=== PATIENT | male | born 1965 | race Caucasian/White ===

== ENCOUNTER 2020-06-28 15:34 | Inpatient (IN) | payer OTHER ==
[~2020-06-28] VITALS: Ht 172.7 cm; Wt 91.0 kg
[2020-06-28] MEDS ORDERED: MORPHINE SULFATE 4 MG/ML SYR/VIAL IV ONE (16:00)
[2020-06-28] MEDS ORDERED: ONDANSETRON HCL 4 MG/2 ML VIAL IV ONE (16:00)
[2020-06-28] MEDS ORDERED: FAMOTIDINE (10MG/ML) 2ML VL IV ONE (16:30)
[2020-06-28 16:48] LABS: Basophils # (auto) 0 10 ^3/uL (0-0.2); Eosinophils # (auto) 0.3 10 ^3/uL (0-0.8); Eosinophils % (auto) 3.1 % (0.0-7.0)
[2020-06-28 16:49] LABS: Basophils % (auto) 0.3 % (0.0-2.0); Hematocrit 45.5 % (41.0-53.0); Hemoglobin 16.3 g/dL (13.5-17.5); Mean Corpuscular Hemoglobin 31.9 pg (28.0-32.0); Mean Corpuscular Hgb Conc. 35.9 g/dL (32.0-36.0); Mean Corpuscular Volume 88.9 fL (80.0-100.0); Monocytes # (auto) 1.2 10 ^3/uL (0-1.3); Monocytes % (auto) 11.5 % (0.0-12.0); Neutrophils # (auto) 4.5 10 ^3/uL (1.6-8.6); Neutrophils % (auto) 45.1 % (37.0-80.0); Nucleated Red Blood Cells % 0.1 %; Platelet Count (auto) 506 10^3/uL (140-450); Red Blood Cells 5.11 10^6/uL (4.5-5.90); Red Cell Distribution Width 13.3 % (11.8-14.3); White Blood Cell 10.1 10^3/uL (4.4-10.8)
[2020-06-28 17:02] LABS: INR 1.01 (0.9-1.15); Partial Thromboplastin Time 26.7 sec (23.0-31.2)
[2020-06-28 17:19] LABS: Albumin 3.3 g/dL (3.4-5.0); Calcium 9.9 mg/dL (8.5-10.1); Magnesium 2.2 mg/dL (1.6-2.6); Potassium 3.4 mmol/L (3.5-5.1)
[2020-06-28 17:27] LABS: Bilirubin, Total 0.9 mg/dL (0.2-1.0); Total Protein 7.6 g/dL (6.4-8.2)
[2020-06-28] MEDS ORDERED: IOHEXOL 350 MG/ML 100ML IJ ONE (17:43)
[2020-06-28] MEDS ORDERED: POTASSIUM CHL 20 Meq TABLET PO ONE (18:00)
[2020-06-28] MEDS ORDERED: SODIUM CHLORIDE 0.9% 1,000 ML IV ONE (19:00)
[2020-06-28 19:38] LABS: Urine Bacteria NONE SEEN /hpf (None Seen); Urine Blood Negative /uL (Negative); Urine Specific Gravity 1.022 (1.001-1.035); Urine WBC 12 /hpf (0 - 3)
[2020-06-28] MEDS ORDERED: CLOPIDOGREL 300 MG TAB PO ONE (19:45)
[2020-06-28 19:48] LABS: Amphetamine Screen, Urine NEGATIVE (NEGATIVE); Barbiturate Scree,Urine NEGATIVE (NEGATIVE); Benzodiazephine Screen, Urine NEGATIVE (NEGATIVE); Cannabinoid Screen, Urine NEGATIVE (NEGATIVE); Cocaine Screen, Urine NEGATIVE (NEGATIVE); Phencyclidine Screen, Urine NEGATIVE (NEGATIVE)
[2020-06-28 19:56] LABS: Opiate Scree,Urine POSITIVE (NEGATIVE)
[2020-06-28] MEDS ORDERED: ENOXAPARIN SOD 100 MG/1 ML SYRINGE SC ONE (21:00)
[2020-06-29] MEDS ORDERED: NITROGLYCERIN 0.4 MG SL TAB SL PRN (01:00)
[2020-06-29] MEDS ORDERED: DOCUSATE SOD 100 MG CAP PO PRN (01:00)
[2020-06-29] MEDS: SODIUM CHLORIDE 0.9% 1,000 ML IV SCH ×2 (01:00→08:27)
[2020-06-29] MEDS ORDERED: DEXTROSE (50%) 50ML SYRG IV PRN (01:00)
[2020-06-29] MEDS ORDERED: MORPHINE SULFATE 4 MG/ML SYR/VIAL IV PRN (01:00)
[2020-06-29] MEDS ORDERED: MORPHINE SULF INJ 2 MG/ML SYRINGE 1ML IV ONE (01:15)
[2020-06-29] MEDS ORDERED: ONDANSETRON HCL 4 MG/2 ML VIAL IV ONE (01:15)
[2020-06-29] MEDS: ACETAMINOPHEN 325 MG TAB PO PRN ×2 (05:03→10:00)
[2020-06-29] MEDS: hydrALAZINE HCL 20 MG/ML VL IV SCH ×3 (06:00→18:00)
[2020-06-29] MEDS: ACCU-CHEK COMFORT CURVE STRIP VI SCH ×4 (07:00→22:00)
[2020-06-29] MEDS: InsuLIN REG 1unit/0.01ml Soln (100units/ml) SC SCH ×4 (07:56→21:55)
[2020-06-29] MEDS: MORPHINE SULF INJ 2 MG/ML SYRINGE 1ML IV PRN (07:57)
[2020-06-29] MEDS: ONDANSETRON HCL 4 MG/2 ML VIAL IV PRN (07:57)
[2020-06-29] MEDS: HYDROcodone-ACET 5/325MG TAB PO PRN (07:59)
[2020-06-29 08:25] LABS: Basophils # (auto) 0.1 10 ^3/uL (0-0.2); Eosinophils # (auto) 0.4 10 ^3/uL (0-0.8); Monocytes # (auto) 0.9 10 ^3/uL (0-1.3); Neutrophils # (auto) 4.4 10 ^3/uL (1.6-8.6); White Blood Cell 8.2 10^3/uL (4.4-10.8)
[2020-06-29 08:27] LABS: Basophils % (auto) 0.6 % (0.0-2.0); Eosinophils % (auto) 5.2 % (0.0-7.0); Hematocrit 45.3 % (41.0-53.0); Hemoglobin 15.8 g/dL (13.5-17.5); Lymphocytes # (auto) 2.3 10 ^3/uL (0.4-5.4); Lymphocytes % (auto) 28.8 % (10.0-50.0); Mean Corpuscular Hgb Conc. 34.8 g/dL (32.0-36.0); Mean Corpuscular Volume 89.3 fL (80.0-100.0); Monocytes % (auto) 10.9 % (0.0-12.0); Neutrophils % (auto) 54.5 % (37.0-80.0); Nucleated Red Blood Cells % 0.4 %; Platelet Count (auto) 440 10^3/uL (140-450); Red Blood Cells 5.07 10^6/uL (4.5-5.90); Red Cell Distribution Width 13.3 % (11.8-14.3)
[2020-06-29 09:00] LABS: Alanine Aminotransferase 79 U/L (16-61); Anion Gap 5 (5-15); Blood Urea Nitrogen 11 mg/dL (7-18); Calcium 9.1 mg/dL (8.5-10.1); Carbon Dioxide 27 mmol/L (21-32); Chloride 103 mmol/L (98-107); Glucose 198 mg/dL (74-106); Sodium 135 mmol/L (136-145)
[2020-06-29 09:04] LABS: Alkaline Phosphatase 104 U/L (45-117); Aspartate Aminotransferase 57 U/L (15-37); BUN/Creatinine Ratio 14.1; Bilirubin, Total 0.9 mg/dL (0.2-1.0); Cholesterol 218 mg/dL (< 200); GFR African American 132 mL/min; GFR Non-African American 109 mL/min; HDL Cholesterol 32 mg/dL (40-59); Total Protein 7.5 g/dL (6.4-8.2); Triglycerides 428 mg/dL (< 150)
[2020-06-29] MEDS ORDERED: ENOXAPARIN SOD 40 MG/0.4 ML SYRINGE SC SCH (10:00)
[2020-06-29] MEDS ORDERED: NITROGLYCERIN 0.4 MG SL TAB SL ONE (10:00)
[2020-06-29] MEDS ORDERED: CLOPIDOGREL BISULFATE 75 MG TAB PO SCH (10:00)
[2020-06-29] MEDS: MULTIPLE VITAMIN TAB PO SCH (10:07)
[2020-06-29] MEDS: PANTOPRAZOLE 40 MG/10 ML VIAL INJ IV SCH (10:07)
[2020-06-29] MEDS: ASCORBIC ACID 500 MG TAB PO SCH ×2 (10:07→22:00)
[2020-06-29] MEDS: ASPirin 81 mg TAB PO SCH (10:07)
[2020-06-29 14:21] VITALS: BP 130/77
[2020-06-29] MEDS ORDERED: MORPHINE SULF INJ 2 MG/ML SYRINGE 1ML IV PRN (15:15)
[2020-06-29] MEDS ORDERED: ENOXAPARIN SOD 100 MG/1 ML SYRINGE SC ONE (16:30)
[2020-06-29] MEDS ORDERED: ACETAMINOPHEN 500 MG TAB PO PRN (16:30)
[2020-06-29] MEDS ORDERED: REMDESIVIR PER PHARMACY 0 ML IV SCH (16:30)
[2020-06-29] MEDS ORDERED: METOPROLOL SUCCINATE XL 50 MG TAB PO ONE (17:00)
[2020-06-29 17:41] LABS: Eosinophils # (auto) 0.4 10 ^3/uL (0-0.8); Lymphocytes # (auto) 2.6 10 ^3/uL (0.4-5.4); Monocytes # (auto) 0.9 10 ^3/uL (0-1.3)
[2020-06-29 17:43] LABS: Basophils # (auto) 0.1 10 ^3/uL (0-0.2); Basophils % (auto) 1.2 % (0.0-2.0); Hematocrit 44.2 % (41.0-53.0); Hemoglobin 15.6 g/dL (13.5-17.5); Lymphocytes % (auto) 33.2 % (10.0-50.0); Mean Corpuscular Hemoglobin 31.9 pg (28.0-32.0); Mean Corpuscular Hgb Conc. 35.4 g/dL (32.0-36.0); Mean Corpuscular Volume 90.1 fL (80.0-100.0); Monocytes % (auto) 11.3 % (0.0-12.0); Neutrophils # (auto) 3.9 10 ^3/uL (1.6-8.6); Neutrophils % (auto) 49.3 % (37.0-80.0); Platelet Count (auto) 466 10^3/uL (140-450); Red Cell Distribution Width 13.1 % (11.8-14.3); White Blood Cell 7.9 10^3/uL (4.4-10.8)
[2020-06-29 18:06] LABS: BUN/Creatinine Ratio 13.8; Calcium 8.8 mg/dL (8.5-10.1); Magnesium 2.3 mg/dL (1.6-2.6)
[2020-06-29 18:10] LABS: Bilirubin, Total 0.8 mg/dL (0.2-1.0); CRP High Sensitivity 0.69 mg/dL (< 0.3); Total Protein 7.3 g/dL (6.4-8.2)
[2020-06-29] MEDS: ALBUTEROL SULF HFA 90MCG INH 200DOSE IN PRN (19:15)
[2020-06-29] MEDS ORDERED: ENOXAPARIN SOD 100 MG/1 ML SYRINGE SC SCH (22:00)
[2020-06-29] MEDS: ENOXAPARIN SOD 80 MG/0.8ML SYRINGE SC SCH (22:00)
[2020-06-29] MEDS ORDERED: BUDESONIDE (INHALATION) 180 MCG IH IN SCH (22:00)
[2020-06-29] MEDS: ATORVASTATIN 20 MG TAB PO SCH (22:00)
[2020-06-29] MEDS ORDERED: DOXYCYCLINE 100MG/250ML 250 ML IV SCH (22:00)
[2020-06-30] VITALS: BP 106/61
[2020-06-30] MEDS: hydrALAZINE HCL 20 MG/ML VL IV SCH ×5 (00:08→23:44)
[2020-06-30 06:04] LABS: Basophils # (auto) 0 10 ^3/uL (0-0.2); Basophils % (auto) 0.5 % (0.0-2.0); Eosinophils # (auto) 0.4 10 ^3/uL (0-0.8); Eosinophils % (auto) 5.2 % (0.0-7.0); Hematocrit 41.5 % (41.0-53.0); Hemoglobin 15.1 g/dL (13.5-17.5); Lymphocytes # (auto) 2.2 10 ^3/uL (0.4-5.4); Lymphocytes % (auto) 25.6 % (10.0-50.0); Mean Corpuscular Hemoglobin 32.4 pg (28.0-32.0); Mean Corpuscular Hgb Conc. 36.4 g/dL (32.0-36.0); Mean Corpuscular Volume 88.9 fL (80.0-100.0); Monocytes # (auto) 0.9 10 ^3/uL (0-1.3); Monocytes % (auto) 10.4 % (0.0-12.0); Neutrophils # (auto) 4.9 10 ^3/uL (1.6-8.6); Neutrophils % (auto) 58.3 % (37.0-80.0); Platelet Count (auto) 433 10^3/uL (140-450); Red Blood Cells 4.67 10^6/uL (4.5-5.90); Red Cell Distribution Width 13.3 % (11.8-14.3); White Blood Cell 8.5 10^3/uL (4.4-10.8)
[2020-06-30 06:25] LABS: Potassium 3.6 mmol/L (3.5-5.1)
[2020-06-30] MEDS: InsuLIN REG 1unit/0.01ml Soln (100units/ml) SC SCH ×4 (06:25→21:42)
[2020-06-30] MEDS: ACCU-CHEK COMFORT CURVE STRIP VI SCH ×4 (06:25→21:39)
[2020-06-30] MEDS: LEVOTHYROXINE SODIUM 50 MCG TAB PO SCH (06:26)
[2020-06-30 06:32] LABS: BUN/Creatinine Ratio 16.5; Calcium 8.8 mg/dL (8.5-10.1); Magnesium 2.1 mg/dL (1.6-2.6)
[2020-06-30 06:36] LABS: INR 1.06 (0.9-1.15); Partial Thromboplastin Time 34.7 sec (23.0-31.2)
[2020-06-30 06:55] LABS: Bilirubin, Total 0.8 mg/dL (0.2-1.0); Phosphorus 2.5 mg/dL (2.5-4.90); Total Protein 6.9 g/dL (6.4-8.2)
[2020-06-30] MEDS: HYDROcodone-ACET 5/325MG TAB PO PRN (07:12)
[2020-06-30 07:49] VITALS: BP 119/74
[2020-06-30] MEDS: MULTIPLE VITAMIN TAB PO SCH (09:35)
[2020-06-30] MEDS: PANTOPRAZOLE 40 MG/10 ML VIAL INJ IV SCH (09:35)
[2020-06-30] MEDS: ASPirin 81 mg TAB PO SCH (09:35)
[2020-06-30] MEDS: ZINC SULFATE 220mg CAP or TAB PO SCH (09:35)
[2020-06-30] MEDS: CHOLECALCIFEROL (VITD3) 2,000 UNIT CAP/TAB PO SCH (09:36)
[2020-06-30] MEDS: SODIUM CHLORIDE 0.9% 1,000 ML IV SCH (09:36)
[2020-06-30] MEDS: ENOXAPARIN SOD 80 MG/0.8ML SYRINGE SC SCH ×2 (09:36→21:39)
[2020-06-30] MEDS: ASCORBIC ACID 1,000 MG TAB PO SCH (09:36)
[2020-06-30] MEDS: METOPROLOL SUCCINATE XL 50 MG TAB PO SCH (09:36)
[2020-06-30] MEDS: ASCORBIC ACID 500 MG TAB PO SCH (09:54)
[2020-06-30] MEDS ORDERED: DexAMETHasone SOD PHOS 10MG/1ML VIAL INJ IV SCH (10:00)
[2020-06-30] MEDS: MORPHINE SULF INJ 2 MG/ML SYRINGE 1ML IV PRN (11:24)
[2020-06-30 16:06] VITALS: BP 116/68
[2020-06-30] MEDS: ATORVASTATIN 20 MG TAB PO SCH (21:38)
[2020-07-01] VITALS: BP 107/48
[2020-07-01] MEDS: SODIUM CHLORIDE 0.9% 1,000 ML IV SCH ×2 (03:13→19:40)
[2020-07-01] MEDS: hydrALAZINE HCL 20 MG/ML VL IV SCH ×3 (06:00→18:27)
[2020-07-01] MEDS: LEVOTHYROXINE SODIUM 50 MCG TAB PO SCH (06:55)
[2020-07-01] MEDS: InsuLIN REG 1unit/0.01ml Soln (100units/ml) SC SCH ×4 (06:55→21:36)
[2020-07-01] MEDS: ACCU-CHEK COMFORT CURVE STRIP VI SCH ×4 (06:56→21:37)
[2020-07-01 08:00] VITALS: BP 123/79
[2020-07-01] MEDS: PANTOPRAZOLE 40 MG/10 ML VIAL INJ IV SCH (09:25)
[2020-07-01] MEDS: ZINC SULFATE 220mg CAP or TAB PO SCH (09:26)
[2020-07-01] MEDS: METOPROLOL SUCCINATE XL 50 MG TAB PO SCH (09:26)
[2020-07-01] MEDS: MULTIPLE VITAMIN TAB PO SCH (09:26)
[2020-07-01] MEDS: ASPirin 81 mg TAB PO SCH (09:26)
[2020-07-01] MEDS: CHOLECALCIFEROL (VITD3) 2,000 UNIT CAP/TAB PO SCH (09:27)
[2020-07-01] MEDS: ENOXAPARIN SOD 80 MG/0.8ML SYRINGE SC SCH ×2 (09:27→21:42)
[2020-07-01] MEDS: ASCORBIC ACID 1,000 MG TAB PO SCH (09:27)
[2020-07-01] MEDS ORDERED: ANGIOMAX 250 MG VIAL IV ONE (14:32)
[2020-07-01] MEDS ORDERED: SODIUM CHL 0.9% 50 ML ONE (14:32)
[2020-07-01] MEDS ORDERED: fentaNYL CITRATE 100 MCG/2 ML VL ONE (14:32)
[2020-07-01] MEDS ORDERED: IOHEXOL 350 MG/ML 100ML IJ ONE ×2 (14:32→15:14)
[2020-07-01] MEDS ORDERED: MIDAZOLAM HCL 1MG/1ML-2 ML VIAL ONE (14:32)
[2020-07-01] MEDS ORDERED: LIDOCAINE 2%HCL (LOCAL ANESTH.) INJ 20ML MDV ONE (14:33)
[2020-07-01] MEDS ORDERED: TICAGRELOR 90 MG TAB ONE (15:53)
[2020-07-01] MEDS ORDERED: NITROGLYCERIN 0.4MG/DOSE SPRAY 4.9GM ONE (15:59)
[2020-07-01 16:00] VITALS: BP 136/69
[2020-07-01] MEDS: ONDANSETRON HCL 4 MG/2 ML VIAL IV PRN (19:56)
[2020-07-01] MEDS: HYDROcodone-ACET 5/325MG TAB PO PRN (20:19)
[2020-07-01] MEDS: ATORVASTATIN 20 MG TAB PO SCH (21:36)
[2020-07-02] VITALS: BP 117/73
[2020-07-02] MEDS ORDERED: PSEUDOEPHEDRINE HCL 30 MG TAB PO ONE (05:45)
[2020-07-02] MEDS: hydrALAZINE HCL 20 MG/ML VL IV SCH ×2 (06:00)
[2020-07-02] MEDS: LEVOTHYROXINE SODIUM 50 MCG TAB PO SCH (06:02)
[2020-07-02] MEDS: ACCU-CHEK COMFORT CURVE STRIP VI SCH (06:02)
[2020-07-02] MEDS: InsuLIN REG 1unit/0.01ml Soln (100units/ml) SC SCH (06:21)
[2020-07-02] MEDS: ALBUTEROL SULF HFA 90MCG INH 200DOSE IN PRN (06:34)
[2020-07-02 08:00] VITALS: BP 136/69
[2020-07-02] MEDS: ZINC SULFATE 220mg CAP or TAB PO SCH (09:54)
[2020-07-02] MEDS: ASPirin 81 mg TAB PO SCH (09:54)
[2020-07-02] MEDS: ASCORBIC ACID 1,000 MG TAB PO SCH (09:54)
[2020-07-02] MEDS: METOPROLOL SUCCINATE XL 50 MG TAB PO SCH (09:56)
[2020-07-02] MEDS: CHOLECALCIFEROL (VITD3) 2,000 UNIT CAP/TAB PO SCH (09:57)
[2020-07-02] MEDS: MULTIPLE VITAMIN TAB PO SCH (09:57)
[2020-07-02] MEDS: PANTOPRAZOLE 40 MG/10 ML VIAL INJ IV SCH (10:01)
[2020-07-02] MEDS: ENOXAPARIN SOD 80 MG/0.8ML SYRINGE SC SCH (10:41)
[2020-07-02 12:52] VITALS: BP 136/69
== END 2020-07-02 13:26 | disposition home or self-care (01) | DRG 246 ==
LOC: ER 15:34 → EDUNIT# 15:34 → EDBD 15:34 → TELE 06-29 01:11 → TELE-EAST 06-29 14:43 → TELE-WESTW 07-01 12:08
PROVIDERS: ADMIT Nurse Practitioner Family; ATTEND Family Medicine
PROC: B2111ZZ Fluoroscopy of Multiple Coronary Arteries using Low Osmolar Contrast (ICD-10-PCS; principal; 2020-07-01)
PROC: 027036Z Dilation of Coronary Artery, One Artery with Three Drug-eluting Intraluminal Devices, Percutaneous Approach (ICD-10-PCS; 2020-07-01)
PROC: XW033E5 Introduction of Remdesivir Anti-infective into Peripheral Vein, Percutaneous Approach, New Technology Group 5 (ICD-10-PCS; 2020-07-01)
DX: I21.4 Non-ST elevation (NSTEMI) myocardial infarction (principal); J12.82 Pneumonia due to coronavirus disease 2019; U07.1 COVID-19; R77.8 Other specified abnormalities of plasma proteins; R79.89 Other specified abnormal findings of blood chemistry; R82.4 Acetonuria; E03.9 Hypothyroidism, unspecified; E11.51 Type 2 diabetes mellitus with diabetic peripheral angiopathy without gangrene; E11.65 Type 2 diabetes mellitus with hyperglycemia; E66.9 Obesity, unspecified; E78.5 Hyperlipidemia, unspecified; E86.0 Dehydration; I10 Essential (primary) hypertension; Z82.49 Family history of ischemic heart disease and other diseases of the circulatory system; Z86.73 Personal history of transient ischemic attack (TIA), and cerebral infarction without residual deficits; Z79.899 Other long term (current) drug therapy; Z79.891 Long term (current) use of opiate analgesic; Z79.01 Long term (current) use of anticoagulants; Z88.0 Allergy status to penicillin; Z79.82 Long term (current) use of aspirin; Z68.30 Body mass index [BMI] 30.0-30.9, adult
CPT/HCPCS: 36415; 71045; 71260; 74177; 80053; 80061; 80307; 81001; 82306; 82728; 82962; 83036; 83605; 83615; 83735; 83880; 84100; 84443; 84484; 85025; 85379; 85610; 85730; 86141; 86710; 86850; 86900; 86901; 87040; 87426; 93005; 96361; 96372; 96374; 96375; 96376; 99152; 99153; C1874; C1887; C9113; G0378; J1815; J2250; J2405; J3490